=== PATIENT | male | born 1980 | race Caucasian/White ===

== ENCOUNTER 2017-06-09 22:06 | Emergency (ER) | payer OTHER ==
[~2017-06-09] VITALS: Ht 182.9 cm; Wt 168.0 kg
[~2017-06-09 22:06] MED LIST: HYDROCODON-ACE1 EAC7 PO; INDOCIN25 MG PO
[2017-06-10] MEDS ORDERED: AUGMENTIN875 MG PO (00:14)
[2017-06-10] MEDS ORDERED: LIDOCAINE20 MG/1 M5 PO (00:14)
[2017-06-10] MEDS ORDERED: INDOCIN50 MG PO (00:14)
== END 2017-06-10 00:37 | disposition home or self-care (01) ==
LOC: EME 22:06
DX: K04.7 Periapical abscess without sinus (principal); K02.9 Dental caries, unspecified
CPT/HCPCS: 99281; 99283

== ENCOUNTER 2018-01-09 23:54 | Emergency (ER) | payer OTHER ==
[~2018-01-09] VITALS: Ht 182.9 cm; Wt 169.5 kg
[~2018-01-09 23:54] MED LIST changes: +AUGMENTIN875 MG PO; +INDOCIN50 MG PO; +LIDOCAINE20 MG/1 M5 PO
[2018-01-10] MEDS ORDERED: NORCO 5/3251 TABLET PO (03:20)
[2018-01-10] MEDS ORDERED: PEN-VEE K,VEET500 MG PO (03:20)
[2018-01-10 04:28] VITALS: BP 152/100
== END 2018-01-10 04:28 | disposition home or self-care (01) ==
LOC: EME 23:54
DX: K08.89 Other specified disorders of teeth and supporting structures (principal); K03.81 Cracked tooth; K02.9 Dental caries, unspecified
CPT/HCPCS: 99281; 99284